=== PATIENT | female | born 1990 | race Caucasian/White ===

== ENCOUNTER 2016-07-30 16:15 | Emergency (ER) | payer OTHER ==
[~2016-07-30] VITALS: Ht 157.5 cm; Wt 60.4 kg
[~2016-07-30 16:15] MED LIST: NAPROSYN500 MG PO; NORCO 325 MG-7.1 TAB PO
[2016-07-30 16:17] VITALS: TEMP 97.8
[2016-07-30 18:19] VITALS: BP 110/75; PULSE 50
== END 2016-07-30 18:20 | disposition home or self-care (01) ==
LOC: COL.ER 16:15
DX: G97.1 Other reaction to spinal and lumbar puncture (principal)
CPT/HCPCS: J2405; J7120